=== PATIENT | female | born 1970 | race Caucasian/White ===

== ENCOUNTER 2023-08-11 08:37 | Outpatient (CLI) | payer OTHER, SELFPAY ==
[2023-08-11 09:09] VITALS: PULSE 82; RESP 18; O2SAT 98
[2023-08-11] MEDS: albuterol 2.5 mg/3 mL Neb INHALATION (09:09)
== END 2023-08-11 08:38 | disposition home or self-care (01) ==
PROVIDERS: Visit Provider Dermatology
DX: J44.9 Chronic obstructive pulmonary disease, unspecified (principal)
CPT/HCPCS: 94060; 94618; 94729; J7613

== ENCOUNTER 2023-11-13 13:09 | Outpatient (CLI) | payer MEDICAID, SELFPAY ==
--- NOTE | 2023-11-13 13:29 | CT_ITS ---
WS: [id number] CT chest w con* [id number] HISTORY: SOLITARY LUNG NODULE TECHNIQUE: Axial imaging performed through the thorax. Coronal and sagittal reformats are submitted. All CT scans at [facility] use at least one of these dose optimization techniques: automated exposure control; mA and/or kV adjustment per patient size (includes targeted exams where dose is mat ched to clinical indication); or iterative reconstruction. CONTRAST: Omnipaque 350; 100 mL IV. DLP: 244.50 mGy.cm COMPARISON: None available. Lungs and central airway: Severe centrilobular emphysema. Mild interstitial thickening and a few scat tered micronodules. No prior studies for comparison. There is no mass. No pneumonia or endobronchial lesions. Pleura: Normal. No pleural effusion. Heart and pericardium: Normal size heart with no pericardial effusion. Mediastinum and carlos: No mediastinum or hilar adenopathy. Vessels: Very mild atherosclerosis aorta. No aneurysm. Mildly dilated pulmonary artery. Chest wall and lower neck: No soft tissue masses. Upper abdomen: Negative. No adrenal mass. Osseous structures: No destructive bone lesions. CT/CT chest w con* [id number] IMPRESSION: 1. Severe emphysema. No pulmonary mass or nodule identified. 2. Mild pulmonary hypertension.
[2023-11-13] MEDS: iohexol 350 mg/mL 500 mL Btl (per mL) IV (13:51)
== END 2023-11-13 13:10 | disposition home or self-care (01) ==
LOC: RAD 13:10
PROVIDERS: Visit Provider Nurse Practitioner
DX: J43.2 Centrilobular emphysema (principal)
CPT/HCPCS: 71260